=== PATIENT | male | born 1965 | race Caucasian/White ===

== ENCOUNTER → 2023-08-14 07:49 | Outpatient (REF) | payer BC, SELFPAY | LOC: EMG 07:49 | PROVIDERS: ATTENDING PHYSICIAN Orthopaedic Surgery Hand Surgery | DX: M25.522 Pain in left elbow (principal); R20.0 Anesthesia of skin | CPT/HCPCS: 95886; 95910 ==

== ENCOUNTER → 2023-12-11 16:13 | Outpatient (REF) | payer BC, SELFPAY | LOC: HWRAD 16:13 | PROVIDERS: ATTENDING PHYSICIAN Physician Assistant | DX: M79.642 Pain in left hand (principal) | CPT/HCPCS: 73130 ==